=== PATIENT | male | born 1990 | race Caucasian/White ===

== ENCOUNTER 2019-12-02 17:55 | Emergency (ER) | payer BC, SELFPAY ==
[2019-12-02 17:56] VITALS: BP 142/89; PULSE 66; RESP 18; TEMP 37.3; O2SAT 99; BMI 29.0
--- NOTE | 2019-12-02 18:34 | ED.VISSUMM ---
- ER Visit Summary Date of Service: 12/02/19 Chief Complaint: Laceration left hand History of Present Illness: The patient is a 29 M who presents with a left hand laceration that occurred today. Patient was using a grinding wheel when he accidentally cut his finger with a grinding wheel. Patient states his last tetanus was approximately 6 years ago. Patient denies any paresthesias or weakness. Patient denies any pain. Patient states the bleeding stopped after few minutes of pressure. Physical Examination: Vital signs are stable. Patient is afebrile. Patient is in no acute distress. Skin is warm dry. There is a 2 cm full-thickness linear laceration in the webspace between the fourth and fifth digits. There is minimal bleeding. There are no foreign bodies noted. Strength is 5/5 in lection and extension of the MP, PIP, and DIP joints of the fourth and fifth fingers. Sensation was intact to light touch in all digits. Capillary refill was less than 2 seconds in all digits. Emergency Department Course and Treatment: The wound was cleaned and irrigated with copious amounts of normal saline. The wound was anesthetized with 1% plain lidocaine locally. The wound was closed with 2 simple interrupted #4-0 nylon sutures under sterile technique. Patient tolerated the procedure well. Bacitracin dressing was applied. Patient was given a prescription for Keflex. Patient was instructed to follow-up with his primary care physician in 7 days for wound recheck and suture removal. Patient understood and was agreeable with the plan. All questions were answered. Disposition: Discharge home Impression: Left hand laceration This note was generated with [employer] dictation software. It may contain incorrect words, spelling, and punctuation that were not noted in review of the chart prior to signing ED Disposition - Plan for ED Patient: Disposition: Home or Assisted Living Diagnosis: Laceration of left hand Instructions: LACERATION, Extrem (Suture, Staple or Tape) Prescriptions: Cephalexin [Keflex] 500 mg PO Q6 #40 cap Prescription Printed Referrals: Care Physician,No Primary [Primary Care Provider] - 7 Days for suture removal
== END 2019-12-02 19:09 | disposition home or self-care (01) ==
PROVIDERS: Emergency Provider Emergency Medicine
DX: S61.412A Laceration without foreign body of left hand, initial encounter (principal); W29.8XXA Contact with other powered hand tools and household machinery, initial encounter; Y93.89 Activity, other specified; Y92.89 Other specified places as the place of occurrence of the external cause; Y99.8 Other external cause status
CPT/HCPCS: 12001; 99284